=== PATIENT | female | born 2000 | race Caucasian/White ===

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

== ENCOUNTER → 2020-07-18 | Outpatient (CLI) | payer BC | END | disposition home or self-care (01) | LOC: COVID19 08:41 | PROVIDERS: ATTEND Internal Medicine | DX: J02.9 Acute pharyngitis, unspecified (principal); R51.9 Headache, unspecified; Z20.828 Contact with and (suspected) exposure to other viral communicable diseases ==

== ENCOUNTER → 2022-08-14 | Outpatient (CLI) | payer BC ==
[2022-08-14 12:25] LABS: BASO % 0.5 % (0.0-1.0); EOS # 0.1 10*3/uL (0.0-0.4); EOS % 1.7 % (1.0-4.0); HEMATOCRIT 40.8 % (37.0-47.0); LYMPH # 1.3 10*3/uL (1.3-4.4); LYMPH % 21.9 % (27.0-41.0); MEAN CELL VOLUME 89.5 fl (81.0-99.0); MEAN CORPUSCULAR HGB 29.2 pg (27.0-31.0); MEAN CORPUSCULAR HGB CONC 32.6 g/dl (33.0-37.0); MEAN PLATELET VOLUME 10.9 fl (9.6-12.3); MONO # 0.4 10*3/uL (0.1-1.0); MONO % 6.7 % (3.0-9.0); PLATELET COUNT AUTOMATED 192 10*3/uL (130-400); RED BLOOD COUNT 4.56 10*6/uL (4.10-5.10); WHITE BLOOD COUNT 5.9 10*3/uL (4.8-10.8)
[2022-08-14 12:53] LABS: ALKALINE PHOSPHATASE 77 U/L (46-116); BUN 8 mg/dl (9-23); CHLORIDE 106 mmol/L (98-107); FREE T4 1.05 ng/dl (0.89-1.76); POTASSIUM 4.3 mmol/L (3.4-5.1); SGPT/ALT 28 U/L (10-49); THYROID STIM HORMONE (HS) 2.929 uIU/ml (0.550-4.780); TOTAL PROTEIN 6.7 gm/dL (6.0-8.0)
[2022-08-14 12:57] LABS: VITAMIN D, 25-HYDROXY 24.2 ng/mL (30-100)
== END | disposition home or self-care (01) ==
LOC: LAB 11:56
PROVIDERS: ATTEND Social Worker Clinical
DX: Z51.81 Encounter for therapeutic drug level monitoring (principal); Z79.899 Other long term (current) drug therapy

== ENCOUNTER → 2023-03-28 | Outpatient (CLI) | payer BC | END | disposition home or self-care (01) | LOC: US 01:35 | PROVIDERS: ATTEND Nurse Practitioner Primary Care | DX: F41.9 Anxiety disorder, unspecified (principal); R19.7 Diarrhea, unspecified; R11.0 Nausea; R10.13 Epigastric pain ==